=== PATIENT | female | born 1940 | race Caucasian/White ===

== ENCOUNTER 2017-05-06 19:57 | Inpatient (IN) | payer MEDICARE, MEDICAID ==
[~2017-05-06] VITALS: Ht 160 cm; Wt 74.4 kg
[2017-05-06] MEDS ORDERED: ONDANSETRON HCL 4MG/2ML VIAL IV STA (20:59)
[2017-05-06] MEDS ORDERED: NITROGLYCERIN OINT 1GM/INCH UDPKT TD ONE (21:00)
[2017-05-06] MEDS ORDERED: MECLIZINE 25MG TABLET PO ONE (21:00)
[2017-05-06] MEDS ORDERED: ASPIRIN 81MG TABLET PO ONE (21:00)
[2017-05-06 21:33] LABS: BASOPHILS % 0.4 % (0.0-2.0); EOSINOPHILS % 0.7 % (0.0-5.0); HEMATOCRIT. 38.4 % (36.0-48.0); HEMOGLOBIN. 13.4 g/dL (12.0-16.0); LYMPHOCYTES % 16.3 % (20.0-50.0); MEAN CORPUSCULAR HEMOGLOBIN 29.4 pg (28.0-32.0); MEAN CORPUSCULAR VOLUME 84.1 fL (81.0-99.0); MEAN PLATELET VOLUME 8.8 fl (7.4-10.4); MONOCYTES % 6.7 % (2.0-8.0); NEUTROPHILS % 75.9 % (40.0-76.0); PLATELET 211 x1000/uL (130-400); RED BLOOD CELL COUNT 4.56 mill/uL (4.2-5.4); RED CELL DISTRIBUTION WIDTH 13.1 % (11.6-14.6)
[2017-05-06 21:37] LABS: PROTHROMBIN TIME 10.7 sec (9.4-11.6)
[2017-05-06 21:49] LABS: CARBON DIOXIDE 25 mEq/L (21-32); CHLORIDE 89 mEq/L (98-107); ETHANOL BLOOD < 10 mg/dL; TROPONIN I < 0.02 ng/mL (0.00-0.04)
[2017-05-06] MEDS ORDERED: SODIUM CHLORIDE 0.9% 1000ML BAG (SEPSIS BOLUS) IV ONE (22:00)
[2017-05-06] MEDS ORDERED: AZITHROMYCIN 500 MG in DEXT 5% WATER 250 ML IV NR (22:00)
[2017-05-06] MEDS ORDERED: CEFTRIAXONE 1 G PREMIX 50 ML IV NR (22:00)
[2017-05-06 22:10] LABS: CLARITY URINE CLEAR (CLEAR); COLOR URINE DARK YELLOW (YELLOW); KETONES URINE NEGATIVE (NEGATIVE); LEUKOCYTE ESTERASE URINE TRACE (NEGATIVE); NITRITE URINE POSITIVE (NEGATIVE); OCCULT BLOOD URINE 1+ (NEGATIVE); PH URINE 5.5 (4.5-8.0); PROTEIN URINE NEGATIVE (NEGATIVE); SPECIFIC GRAVITY URINE 1.015 (1.005-1.030)
[2017-05-06] MEDS ORDERED: SODIUM CHLORIDE 0.9% 2,160 ML IV SCH (22:15)
[2017-05-06 22:36] LABS: *AMPHETAMINES SCREEN URINE NEGATIVE (NEGATIVE); *BARBITURATES SCREEN URINE NEGATIVE (NEGATIVE); *BENZODIAZEPINES SCREEN URINE NEGATIVE (NEGATIVE); *COCAINE SCREEN URINE NEGATIVE (NEGATIVE); CANNABINOID URINE SCREEN NEGATIVE (NEGATIVE); METHADONE URINE SCREEN NEGATIVE (NEGATIVE); OPIATES URINE SCREEN NEGATIVE (NEGATIVE); PHENCYCLIDINE URINE SCREEN NEGATIVE (NEGATIVE)
[2017-05-06] MEDS ORDERED: DEXTROSE 50% WATER 50ML SYRINGE IV PRN (23:00)
[2017-05-06] MEDS ORDERED: DIPHENHYDRAMINE 50MG/ML VIAL IV PRN (23:00)
[2017-05-06] MEDS ORDERED: DOCUSATE SODIUM 100MG CAPSULE PO PRN (23:00)
[2017-05-06] MEDS ORDERED: MAGNESIUM/ALUMINUM HYDROXIDE/SIMETHICONE 30ML UDC PO PRN (23:00)
[2017-05-06] MEDS ORDERED: IPRATROPIUM/ALBUTEROL 0.5-3(2.5)MG/3ML NEB INH PRN (23:00)
[2017-05-06] MEDS ORDERED: NITROGLYCERIN 0.4MG TABLET SL SL PRN (23:00)
[2017-05-06] MEDS ORDERED: ONDANSETRON HCL 4MG/2ML VIAL IV PRN (23:00)
[2017-05-06] MEDS ORDERED: ACETAMINOPHEN 325MG TABLET PO PRN (23:00)
[2017-05-06] MEDS ORDERED: TRAMADOL 50MG TABLET PO PRN (23:00)
[2017-05-06] MEDS ORDERED: NA PHOS,M-B/NA PHOS,DI-BA ENEMA 118ML PR PRN (23:00)
[2017-05-06] MEDS ORDERED: GUAIFENESIN 200MG/10ML SUGAR FREE UDC PO PRN (23:00)
[2017-05-06] MEDS ORDERED: CLONIDINE 0.1MG TABLET PO PRN (23:00)
[2017-05-06 23:31] LABS: T4 FREE 1.19 ng/dL (0.76-1.46)
[2017-05-07] MEDS ORDERED: LEVOFLOXACIN 500MG PREMIX 100 ML IV SCH ×2 (02:00→02:01)
[2017-05-07 06:35] LABS: CREATINE KINASE 146 IU/L (26-192); CREATINE KINASE MB FRACTION 2.8 ng/mL (0.5-3.6); TROPONIN I < 0.02 ng/mL (0.00-0.04)
[2017-05-07 07:05] LABS: VITAMIN B12 SERUM > 2000.0 pg/mL (211-911)
[2017-05-07 08:30] VITALS: BP 119/60
[2017-05-07] MEDS: BLOOD SUGAR DIAGNOSTIC STRIP TEST SCH ×4 (09:00→20:57)
[2017-05-07 09:40] VITALS: BP 127/59
[2017-05-07] MEDS ORDERED: ZOLPIDEM TARTRATE 5MG TABLET PO PRN (10:10)
[2017-05-07] MEDS: SODIUM CHLORIDE 0.9% 1,000 ML IV SCH ×2 (10:45→23:19)
[2017-05-07] MEDS: FAMOTIDINE 20MG/2ML VIAL IV SCH (10:45)
[2017-05-07] MEDS: ASPIRIN 325MG EC TABLET PO SCH (10:50)
[2017-05-07] MEDS: ENOXAPARIN 40MG/0.4ML SYR SUBCUT SCH (10:51)
[2017-05-07] MEDS: LISINOPRIL 20MG TABLET PO SCH ×2 (10:51→20:57)
[2017-05-07] MEDS ORDERED: ATOR10TA69 PO (11:30)
[2017-05-07] MEDS ORDERED: METF10002 PO (11:30)
[2017-05-07] MEDS ORDERED: PANT40TA4 PO (11:30)
[2017-05-07] MEDS ORDERED: BENA1TAB18 PO (11:30)
[2017-05-07 11:37] LABS: BASOPHILS % 0.3 % (0.0-2.0); EOSINOPHILS % 0.5 % (0.0-5.0); HEMATOCRIT. 37.4 % (36.0-48.0); HEMOGLOBIN. 12.7 g/dL (12.0-16.0); MEAN CORPUSCULAR HEMOGLOBIN 28.6 pg (28.0-32.0); MEAN CORPUSCULAR VOLUME 84.4 fL (81.0-99.0); MEAN PLATELET VOLUME 8.7 fl (7.4-10.4); MONOCYTES % 6.7 % (2.0-8.0); NEUTROPHILS % 73.5 % (40.0-76.0); PLATELET 206 x1000/uL (130-400); RED BLOOD CELL COUNT 4.43 mill/uL (4.2-5.4); RED CELL DISTRIBUTION WIDTH 13.3 % (11.6-14.6)
[2017-05-07 11:54] LABS: CARBON DIOXIDE 27 mEq/L (21-32); CHLORIDE 100 mEq/L (98-107)
[2017-05-07 12:00] VITALS: BP 133/63
[2017-05-07] MEDS: INSULIN LISPRO 100 UNITS/ML SUBCUT SCH ×3 (12:46→21:24)
[2017-05-07 15:57] LABS: CREATINE KINASE 154 IU/L (26-192); CREATINE KINASE MB FRACTION 3.1 ng/mL (0.5-3.6); TROPONIN I < 0.02 ng/mL (0.00-0.04)
[2017-05-07 16:00] VITALS: BP 118/58
[2017-05-07 20:00] VITALS: BP 125/60
[2017-05-07] MEDS ORDERED: CEFTRIAXONE 1 G PREMIX 50 ML IV SCH (21:00)
[2017-05-07] MEDS ORDERED: LEVOFLOXACIN 250MG PREMIX 50 ML IV SCH (22:00)
[2017-05-08] VITALS: BP 104/49
[2017-05-08] MEDS ORDERED: LEVOFLOXACIN 250MG PREMIX 50 ML IV SCH (02:00)
[2017-05-08 04:00] VITALS: BP 140/64
[2017-05-08] MEDS: BLOOD SUGAR DIAGNOSTIC STRIP TEST SCH ×2 (06:39→12:22)
[2017-05-08] MEDS: INSULIN LISPRO 100 UNITS/ML SUBCUT SCH ×2 (06:54→12:22)
[2017-05-08 07:18] VITALS: BP 124/49
[2017-05-08] MEDS: ENOXAPARIN 40MG/0.4ML SYR SUBCUT SCH (08:59)
[2017-05-08] MEDS: LISINOPRIL 20MG TABLET PO SCH (09:03)
[2017-05-08] MEDS: FAMOTIDINE 20MG/2ML VIAL IV SCH (09:03)
[2017-05-08] MEDS: ASPIRIN 325MG EC TABLET PO SCH (09:03)
[2017-05-08 11:31] VITALS: BP 115/57
[2017-05-08] MEDS: SODIUM CHLORIDE 0.9% 1,000 ML IV SCH (12:23)
[2017-05-08 13:22] VITALS: BP 115/57
== END 2017-05-08 14:05 | disposition short-term general hospital (02) | DRG 871 ==
LOC: ER 20:13 → 6WST 22:48 → SUPCPDRO 22:50 → ENRESERV 05-07 06:55
PROVIDERS: ADMIT Internal Medicine; ATTEND Internal Medicine
DX: A41.9 Sepsis, unspecified organism (principal); J18.9 Pneumonia, unspecified organism; E11.9 Type 2 diabetes mellitus without complications; N39.0 Urinary tract infection, site not specified; E87.1 Hypo-osmolality and hyponatremia; I10 Essential (primary) hypertension; Z90.49 Acquired absence of other specified parts of digestive tract; Z79.899 Other long term (current) drug therapy
CPT/HCPCS: 36415; 70450; 71045; 74176; 80053; 80061; 80305; 81001; 82550; 82553; 82607; 82746; 82962; 83036; 83540; 83550; 83605; 83690; 83880; 84439; 84443; 84484; 85025; 85610; 87040; 87086; 93005; 93306; 93970; 96365; 96367; 96375; 96376; 99291; G0482; J0456; J0696; J1650; J1815; J1956; J2405; J3490; J7030; J7060; J8597